=== PATIENT | female | born 1985 | race Two or more races ===

== ENCOUNTER → 2023-12-23 08:25 | Outpatient (REF) | payer BC, SELFPAY | LOC: HWRAD 08:25 | PROVIDERS: ATTENDING PHYSICIAN Internal Medicine | DX: E04.1 Nontoxic single thyroid nodule (principal); E03.8 Other specified hypothyroidism | CPT/HCPCS: 76536 ==

== ENCOUNTER → 2024-01-06 12:30 | Outpatient (REF) | payer BC, SELFPAY ==
[2024-01-06 12:45] VITALS: BP 108/65; BP_SYST 92
[2024-01-06 13:25] VITALS: BP 108/65
== END ==
LOC: RADI 12:30
PROVIDERS: ATTENDING PHYSICIAN Internal Medicine
DX: C73 Malignant neoplasm of thyroid gland (principal)
CPT/HCPCS: 88173; 10005